=== PATIENT | male | born 1985 ===

== ENCOUNTER 2022-08-18 18:32 | Emergency (ER) | payer BC ==
[2022-08-18] MEDS: HYDROmorphone 2 MG/ML Syringe IM ONE (18:59)
[2022-08-18] MEDS: HYDROmorphone 2 MG/ML Syringe ONE (19:03)
[2022-08-18] MEDS ORDERED: Cyclobenzaprine 10 MG Tab ONE (20:00)
[2022-08-18] MEDS ORDERED: traMADol 50 MG Tab ONE (20:00)
== END 2022-08-18 20:27 | disposition home or self-care (01) ==
LOC: LB.ED 18:32
DX: S39.012A Strain of muscle, fascia and tendon of lower back, initial encounter (principal); K21.9 Gastro-esophageal reflux disease without esophagitis; Z87.891 Personal history of nicotine dependence; Z79.899 Other long term (current) drug therapy; X50.0XXA Overexertion from strenuous movement or load, initial encounter
CPT/HCPCS: 36415; 74176; 80053; 81001; 83690; 85025; 96372; 99284; A9270-GY; J1170